=== PATIENT | male | born 1990 | race Caucasian/White ===

== ENCOUNTER 2018-12-22 05:24 | Day surgery (SDC) | payer OTHER ==
[2018-12-22] MEDS ORDERED: CEFAZOLIN 1 GM/50 ML (PMX) 50 ML IVPB (06:00)
[2018-12-22] MEDS ORDERED: SOD CHLORIDE 0.9% 1,000 ML IV (06:00)
[2018-12-22] MEDS: ACETAMINOPHEN 500 MG TAB PO (06:48)
[2018-12-22 07:06] LABS: ADD MAN DIFF? NO
[2018-12-22 07:07] LABS: BASOPHIL # 0.1 10^3/ul (0.0-0.1); BASOPHILS % 0.6 % (0.0-2.0); EOSINOPHILS # 0.3 10^3/ul (0.0-0.5); EOSINOPHILS % 2.3 % (0.0-7.0); HEMATOCRIT 38.7 % (42.0-52.0); HEMOGLOBIN 12.9 g/dl (14.0-18.0); LYMPHOCYTES # 2.4 10^3/ul (0.8-2.9); LYMPHOCYTES % 19.9 % (15.0-51.0); MEAN CORPUSCULAR HEMOGLOBIN 30.1 pg (29.0-33.0); MEAN CORPUSCULAR HGB CONC 33.3 g/dl (32.0-37.0); MEAN CORPUSCULAR VOLUME 90.2 fl (82.0-101.0); MEAN PLATELET VOLUME 11.3 fl (7.4-10.4); MONOCYTE # 1.1 10^3/ul (0.3-0.9); MONOCYTES % 8.8 % (0.0-11.0); NEUTROPHIL # 8.1 10^3/ul (1.6-7.5); NEUTROPHILS % 67.4 % (39.0-77.0); PLATELET COUNT 191 10^3/UL (140-415); RED BLOOD COUNT 4.29 10^6/ul (4.70-6.10); RED CELL DISTRIBUTION WIDTH 13.4 % (11.5-14.5)
[2018-12-22 07:10] LABS: PROTIME 12.3 Sec (11.9-14.9)
[2018-12-22 07:13] LABS: ALANINE AMINOTRANSFERASE 26 IU/L (13-69); ALBUMIN 4.2 g/dl (3.3-4.9); ALKALINE PHOSPHATASE 89 IU/L (42-121); ANION GAP 12 (5-13); ASPARTATE AMINO TRANSFERASE 45 IU/L (15-46); BILIRUBIN,INDIRECT 0.2 mg/dl (0-1.1); BILIRUBIN,TOTAL 0.2 mg/dl (0.2-1.3); BLOOD UREA NITROGEN 15 mg/dl (7-20); CALCIUM 9.4 mg/dl (8.4-10.2); CARBON DIOXIDE 28 mmol/L (21-31); CHLORIDE 102 mmol/L (97-110); Estimated GFR > 60 mL/min (>60); GLUCOSE 115 mg/dl (70-220); POTASSIUM 3.6 mmol/L (3.5-5.1); SODIUM 142 mmol/L (135-144); TOTAL PROTEIN 7.7 g/dl (6.1-8.1)
[2018-12-22 07:14] LABS: CREATININE 1.31 mg/dl (0.61-1.24)
[2018-12-22] MEDS ORDERED: ONDANSETRON 4 MG INJ IV (07:30)
[2018-12-22] MEDS ORDERED: LABETALOL HCL 20MG INJ IV (07:30)
[2018-12-22] MEDS ORDERED: ALBUTEROL 0.083% (NEB) 2.5 MG/3 ML AMP HHN (07:30)
[2018-12-22] MEDS ORDERED: HYDROmorphONE 1 MG/5 ML IV SYRINGE IV ×2 (07:30)
[2018-12-22] MEDS ORDERED: OXYCODONE/ACETAMINOPHEN (5/325) TAB PO ×2 (07:30)
[2018-12-22] MEDS ORDERED: MEPERIDINE 25 MG INJ IV (07:30)
[2018-12-22] MEDS ORDERED: FENTAnyl 50 MCG/ML VIAL IV ×2 (07:30)
[2018-12-22] MEDS ORDERED: DIPHENHYDRAMINE 50 MG INJ IV (07:30)
[2018-12-22] MEDS ORDERED: PROPOFOL 40 ML (07:30)
[2018-12-22] MEDS ORDERED: GLYCOPYRROLATE 0.4 MG INJ (07:32)
[2018-12-22] MEDS ORDERED: KETAMINE (50 MG/ML) 10 ML VIAL (07:32)
[2018-12-22] MEDS ORDERED: MIDAZOLAM 1 MG/ML 2 ML INJ ×2 (07:32→08:16)
[2018-12-22] MEDS ORDERED: CEFAZOLIN 1 GM INJ (07:32)
[2018-12-22] MEDS ORDERED: PHENYLephrine (100 MCG/ML) 5ML SYG (08:31)
[2018-12-22] MEDS: LIDOCAINE 1% (MPF) 30 ML INJ (08:52)
[2018-12-22] MEDS: BUPIVACAINE 0.25% (MPF) 30 ML INJ (08:52)
== END 2018-12-22 10:32 | disposition home or self-care (01) ==
LOC: SDS 05:24
DX: L05.91 Pilonidal cyst without abscess (principal)
CPT/HCPCS: 11770; 80053; 85025; 85610; 85730; 88304; 93005